=== PATIENT | female | born 1985 | race Caucasian/White ===

== ENCOUNTER 2023-06-14 06:51 | Inpatient (IN) | payer MEDICAID ==
[~2023-06-14] VITALS: Ht 154.9 cm; Wt 64.9 kg
[2023-06-14 07:15] VITALS: BP_SYST 108; PULSE 113; RESP 17; TEMP 98.1; O2SAT 96
[2023-06-14 08:11] LABS: HEMATOCRIT 37.8 % (36-48); HEMOGLOBIN 12.4 g/dL (12.0-16.0); MEAN CORPUSCULAR HEMOGLOBIN 35 pg (27-31); MEAN CORPUSCULAR HGB CONC 33 % (32-36); MEAN CORPUSCULAR VOLUME 108 fL (79.0-98.0); PLATELET COUNT (AUTO) 237 K/uL (130-430); RED BLOOD CELL COUNT(AUTO) 3.51 MIL/uL (4.2-6.2); RED CELL DISTRIBUTION WIDTH 16.5 % (9.0-15.0)
[2023-06-14 08:16] LABS: INR 1.7 (0.8-1.2); PROTHROMBIN TIME 17.6 SECS (9.5-12.5)
[2023-06-14 08:30] LABS: ALANINE AMINOTRANSFERASE 80 U/L (12-78); ALBUMIN 1.4 g/dL (3.4-4.8); ANION GAP 9 (5-15); ASPARTATE AMINOTRANSFERASE 131 U/L (10-37); CALCIUM 7.5 mg/dL (8.4-11.0); CARBON DIOXIDE 24 mmol/L (23-29); CHLORIDE 100 mmol/L (98-107); CREATININE 0.75 mg/dL (0.55-1.30); GFR AFRICAN AMERICAN 113 mL/min (>90); GLUCOSE 94 mg/dL (74-106); LIPASE 33 U/L (73-393); SODIUM SERUM 133 mmol/L (136-145); TOTAL PROTEIN, SERUM 4.6 g/dL (6.4-8.3); UREA NITROGEN, BLOOD 6 mg/dL (8-21)
[2023-06-14 08:32] LABS: ALCOHOL, BLOOD < 3 mg/dL (<10); GFR NON AFRICAN-AMERICAN 93 mL/min (>90)
[2023-06-14 08:34] LABS: TOTAL BILIRUBIN 18.3 mg/dL (0.0-1.0)
[2023-06-14 08:41] LABS: ATYPICAL LYMPHOCYTES % 1 % (0-0); BAND % (MANUAL) 12 % (0-6); EOSINOPHILS % (MANUAL) 2 % (0-7); LYMPHOCYTES % (MANUAL) 5 % (20-46); MONOCYTES % (MANUAL) 7 % (0-11)
[2023-06-14 08:42] LABS: ANISOCYTOSIS 1+; BASOPHILS % (MANUAL) 0 % (0-2); METAMYELOCYTES % 1 % (0-0); PLATELET ESTIMATE ADEQUATE (ADEQUATE); TARGET CELLS FEW
[2023-06-14 09:27] LABS: BARBITURATE, URINE NEGATIVE (NEG <=200); BENZODIAZEPINE, URINE POSITIVE (NEG <=150); CANNABINOID, URINE NEGATIVE (NEG <=50); COCAINE, URINE NEGATIVE (NEG <=150); METHAMPHETAMINES SCREEN,URINE NEGATIVE (NEG <=500); OPIATE, URINE NEGATIVE (NEG <=100); PHENCYCLIDINE SCREEN,URINE NEGATIVE (NEG <=25); UR TRICYCLIC ANTIDEPRESSANTS NEGATIVE (NEG <=300); URINE AMPHETAMINE NEGATIVE (NEG <=500); URINE METHADONE NEGATIVE (NEG <=200); URINE OXYCODONE SCREEN NEGATIVE (NEG <=100); URINE PROPOXYPHENE SCREEN NEGATIVE (NEG <=300)
[2023-06-14 09:33] LABS: BILIRUBIN,URINE 3+ (NEGATIVE); BLOOD, URINE NEGATIVE (NEGATIVE); CLARITY/URINE CLEAR (CLEAR); COLOR,URINE AMBER (YELLOW); GLUCOSE,URINE 1+ (NEGATIVE); KETONES,URINE TRACE (NEGATIVE); LEUKOCYTE ESTERASE ,URINE NEGATIVE (NEGATIVE); NITRITE, URINE NEGATIVE (NEGATIVE); PH,URINE 5.5 (5.0-8.0); PROTEIN URINE 1+ (NEGATIVE)
[2023-06-14 09:34] LABS: RBC,URINE 0-3 /HPF (0-3)
[2023-06-14 09:35] LABS: BACTERIA,URINE FEW /HPF (None Seen); HYALINE CASTS, URINE 0-3 /LPF (None Seen); WBC,URINE 0-3 /HPF (0-3)
[2023-06-14] MEDS ORDERED: metroNIDAZOLE 500 mg/NS 100 ML IV ONE (10:30)
[2023-06-14] MEDS ORDERED: MAGNESIUM OXIDE 400 MG TABLET PO ONE (11:00)
[2023-06-14] MEDS ORDERED: POTASSIUM CHLORIDE 20 MEQ TAB.PRT.SR PO ONE (11:00)
[2023-06-14 12:42] LABS: APPEARANCE,SPUN,BODY FLUID CLEAR (CLEAR); BF APPEARANCE UNSPUN CLEAR (CLEAR); BODY FLUID COLOR YELLOW (LT YELLOW); BODY FLUID OTHER CELLS 0 %; BODY FLUID SOURCE/ TYPE ASCITES; BODY FLUID TOTAL VOLUME 800 mL; EOSINOPHIL, BODY FLUID 0 %; LYMPHOCYTES, BODY FLUID 11 %; MONOCYTES,BODY FLUID 27 %; NEUTROPHIL, BODY FLUID 62 %; RBC, BODY FLUID 23 /uL; SOURCE/TYPE ,BODY FLUID ASCITES; WBC, BODY FLUID 104 /uL
[2023-06-14] MEDS: LORazepam 1 MG TABLET PO PRN ×2 (14:03→20:51)
[2023-06-14 15:33] VITALS: BP_SYST 110; PULSE 108; RESP 18; TEMP 98.6
[2023-06-14 17:31] LABS: BODY FLUID GLUCOSE 101 mg/dL
[2023-06-14 18:08] LABS: BODY FLUID TOTAL PROTEIN 0.7 g/dL
[2023-06-14 21:48] VITALS: BP_SYST 106; PULSE 98; RESP 18; TEMP 98.3
[2023-06-14 23:40] VITALS: BP_SYST 92; PULSE 106; RESP 20; TEMP 97.8; O2SAT 93
[2023-06-15] VITALS (7 sets, daily range): BP systolic 92–141; PULSE 101–107; RESP 16–20; TEMP 97.5–98.7; O2SAT 93–99
[2023-06-15] MEDS: D5W IV SCH (11:13)
[2023-06-15] MEDS: LEVOFLOXACIN IV SCH (11:13)
[2023-06-15] MEDS: LORazepam 1 MG TABLET PO PRN ×2 (11:36→18:35)
[2023-06-15] MEDS: HYDROcodone/ACETAMIN 5-325 MG TAB (NORCO/ VICODIN) PO PRN ×2 (12:40→18:36)
[2023-06-15] MEDS ORDERED: SPIRONOLACTONE 50 MG TABLET (ALDACTONE) PO ONE (12:45)
[2023-06-15] MEDS ORDERED: MULTIVITAMINS TAB 1 TABLET PO ONE (17:45)
[2023-06-15] MEDS ORDERED: FOLIC ACID 1 MG TABLET PO ONE (17:45)
[2023-06-15] MEDS ORDERED: THIAMINE HCL 100 MG TABLET PO ONE (17:45)
[2023-06-15] MEDS ORDERED: predniSONE 20 MG TABLET PO ONE (17:45)
[2023-06-16] MEDS: HYDROcodone/ACETAMIN 5-325 MG TAB (NORCO/ VICODIN) PO PRN ×4 (00:32→21:28)
[2023-06-16 00:41] VITALS: BP_SYST 107; PULSE 79; RESP 18; TEMP 96.7; O2SAT 92
[2023-06-16] MEDS: LORazepam 1 MG TABLET PO PRN ×3 (03:07→20:19)
[2023-06-16 06:02] LABS: BASOPHILS # (AUTO) 0.3 K/uL (0.0-0.2); BASOPHILS % (AUTO) 0.7 % (0.0-2.0); EOSINOPHILS # (AUTO) 0.1 K/uL (0.0-0.4); EOSINOPHILS % (AUTO) 0.3 % (0.0-4.0); HEMATOCRIT 40.2 % (36-48); HEMOGLOBIN 13.4 g/dL (12.0-16.0); LYMPHOCYTES # (AUTO) 1.6 K/uL (1.0-5.5); LYMPHOCYTES % (AUTO) 4.6 % (20.5-51.5); MEAN CORPUSCULAR HEMOGLOBIN 36 pg (27-31); MEAN CORPUSCULAR HGB CONC 33 % (32-36); MEAN CORPUSCULAR VOLUME 109 fL (79.0-98.0); MONOCYTES # (AUTO) 0.9 K/uL (0.0-1.0); MONOCYTES % (AUTO) 2.5 % (1.7-9.3); NEUTROPHILS # (AUTO) 32.6 K/uL (1.8-7.7); NEUTROPHILS % (AUTO) 91.9 % (40.0-70.0); PLATELET COUNT (AUTO) 240 K/uL (130-430); RED CELL DISTRIBUTION WIDTH 16.1 % (9.0-15.0)
[2023-06-16 06:16] LABS: WHITE BLOOD COUNT (AUTO) 35.5 K/uL (4.8-10.8)
[2023-06-16 06:36] LABS: CALCIUM 7.5 mg/dL (8.4-11.0); CREATININE 0.72 mg/dL (0.55-1.30); POTASSIUM 3.9 mmol/L (3.5-5.1)
[2023-06-16 08:00] VITALS: BP_SYST 100; PULSE 94; RESP 16; TEMP 98; O2SAT 94; O2SAT 95
[2023-06-16] MEDS: THIAMINE HCL 100 MG TABLET PO SCH (08:56)
[2023-06-16] MEDS: FOLIC ACID 1 MG TABLET PO SCH (08:56)
[2023-06-16] MEDS: MULTIVITAMINS TAB 1 TABLET PO SCH (08:56)
[2023-06-16] MEDS: SPIRONOLACTONE 50 MG TABLET (ALDACTONE) PO SCH (08:57)
[2023-06-16] MEDS: LEVOFLOXACIN IV SCH (11:11)
[2023-06-16] MEDS: D5W IV SCH (11:11)
[2023-06-16 12:00] VITALS: BP_SYST 110; PULSE 86; RESP 16; TEMP 98.1; O2SAT 96
[2023-06-16 16:00] VITALS: BP_SYST 104; PULSE 92; RESP 16; TEMP 98.2; O2SAT 95
[2023-06-16 19:30] VITALS: O2SAT 94
[2023-06-16 20:00] VITALS: BP_SYST 103; PULSE 107; RESP 16; TEMP 98.5; O2SAT 94
[2023-06-16] MEDS ORDERED: LORazepam 2 MG/ML VIAL IVP ONE (23:30)
[2023-06-17] MEDS: NICOTINE 21 MG/24 HR PATCH.TD24 TD SCH ×2 (00:01→21:04)
[2023-06-17 00:35] VITALS: BP_SYST 111; PULSE 80; RESP 17; TEMP 97.9; O2SAT 94
[2023-06-17] MEDS: HYDROcodone/ACETAMIN 5-325 MG TAB (NORCO/ VICODIN) PO PRN ×4 (03:23→23:43)
[2023-06-17 08:00] VITALS: BP_SYST 108; PULSE 112; RESP 18; TEMP 97.7; O2SAT 95
[2023-06-17] MEDS: THIAMINE HCL 100 MG TABLET PO SCH (09:51)
[2023-06-17] MEDS: FOLIC ACID 1 MG TABLET PO SCH (09:53)
[2023-06-17] MEDS: SPIRONOLACTONE 50 MG TABLET (ALDACTONE) PO SCH (09:56)
[2023-06-17] MEDS: MULTIVITAMINS TAB 1 TABLET PO SCH (09:56)
[2023-06-17] MEDS: LEVOFLOXACIN IV SCH (10:17)
[2023-06-17] MEDS: D5W IV SCH (10:17)
[2023-06-17 11:55] LABS: BASOPHILS # (AUTO) 0.1 K/uL (0.0-0.2); BASOPHILS % (AUTO) 0.2 % (0.0-2.0); EOSINOPHILS # (AUTO) 0.3 K/uL (0.0-0.4); EOSINOPHILS % (AUTO) 1.2 % (0.0-4.0); HEMATOCRIT 36.6 % (36-48); HEMOGLOBIN 12.2 g/dL (12.0-16.0); LYMPHOCYTES # (AUTO) 1.2 K/uL (1.0-5.5); MEAN CORPUSCULAR HEMOGLOBIN 36 pg (27-31); MEAN CORPUSCULAR HGB CONC 33 % (32-36); MEAN CORPUSCULAR VOLUME 107 fL (79.0-98.0); MONOCYTES # (AUTO) 1.8 K/uL (0.0-1.0); MONOCYTES % (AUTO) 6.2 % (1.7-9.3); NEUTROPHILS # (AUTO) 26.1 K/uL (1.8-7.7); PLATELET COUNT (AUTO) 201 K/uL (130-430); RED BLOOD CELL COUNT(AUTO) 3.42 MIL/uL (4.2-6.2); RED CELL DISTRIBUTION WIDTH 15.9 % (9.0-15.0); WHITE BLOOD COUNT (AUTO) 29.5 K/uL (4.8-10.8)
[2023-06-17 11:57] LABS: CALCIUM 7.4 mg/dL (8.4-11.0); CREATININE 0.87 mg/dL (0.55-1.30); NEUTROPHILS % (AUTO) 88.4 % (40.0-70.0); POTASSIUM 3.5 mmol/L (3.5-5.1)
[2023-06-17 12:00] VITALS: BP_SYST 109; PULSE 124; RESP 16; TEMP 98.5; O2SAT 94
[2023-06-17] MEDS: LORazepam 1 MG TABLET PO PRN ×2 (12:29→21:04)
[2023-06-17 16:00] VITALS: BP_SYST 116; PULSE 128; RESP 16; TEMP 98.4; O2SAT 95
[2023-06-17 20:00] VITALS: BP_SYST 114; PULSE 118; RESP 15; TEMP 99.5; O2SAT 94
[2023-06-18] VITALS (7 sets, daily range): BP systolic 100–128; PULSE 70–126; RESP 16–20; TEMP 98–99.9; O2SAT 94–100
[2023-06-18] MEDS: LORazepam 1 MG TABLET PO PRN ×3 (05:17→20:57)
[2023-06-18 08:21] LABS: HEMATOCRIT 36.1 % (36-48); HEMOGLOBIN 12.5 g/dL (12.0-16.0); MEAN CORPUSCULAR HEMOGLOBIN 37 pg (27-31); MEAN CORPUSCULAR HGB CONC 35 % (32-36); MEAN CORPUSCULAR VOLUME 107 fL (79.0-98.0); PLATELET COUNT (AUTO) 165 K/uL (130-430); RED BLOOD CELL COUNT(AUTO) 3.39 MIL/uL (4.2-6.2); RED CELL DISTRIBUTION WIDTH 15.7 % (9.0-15.0)
[2023-06-18 08:22] LABS: ALBUMIN 1.3 g/dL (3.4-4.8); CALCIUM 7.4 mg/dL (8.4-11.0); CREATININE 0.99 mg/dL (0.55-1.30); POTASSIUM 3.5 mmol/L (3.5-5.1); TOTAL PROTEIN, SERUM 4.4 g/dL (6.4-8.3)
[2023-06-18 08:23] LABS: PROTHROMBIN TIME 20.5 SECS (9.5-12.5); WHITE BLOOD COUNT (AUTO) 36.1 K/uL (4.8-10.8)
[2023-06-18 08:25] LABS: TOTAL BILIRUBIN 15.9 mg/dL (0.0-1.0)
[2023-06-18] MEDS: MULTIVITAMINS TAB 1 TABLET PO SCH ×2 (08:52→08:54)
[2023-06-18] MEDS: FOLIC ACID 1 MG TABLET PO SCH (08:53)
[2023-06-18] MEDS: HYDROcodone/ACETAMIN 5-325 MG TAB (NORCO/ VICODIN) PO PRN ×3 (08:54→23:30)
[2023-06-18] MEDS: predniSONE 20 MG TABLET PO SCH (08:54)
[2023-06-18] MEDS: FUROSEMIDE 40 MG/4 ML VIAL IVP SCH (08:55)
[2023-06-18] MEDS: SPIRONOLACTONE 50 MG TABLET (ALDACTONE) PO SCH (09:35)
[2023-06-18] MEDS: NICOTINE 21 MG/24 HR PATCH.TD24 TD SCH (09:35)
[2023-06-18] MEDS: THIAMINE HCL 100 MG TABLET PO SCH (09:38)
[2023-06-18 11:04] LABS: BAND % (MANUAL) 17 % (0-6); BASOPHILS % (MANUAL) 0 % (0-2); EOSINOPHILS % (MANUAL) 1 % (0-7); LYMPHOCYTES % (MANUAL) 6 % (20-46); MONOCYTES % (MANUAL) 5 % (0-11); PLATELET ESTIMATE ADEQUATE (ADEQUATE); TARGET CELLS RARE
[2023-06-18] MEDS: D5W IV SCH (11:35)
[2023-06-18] MEDS: LEVOFLOXACIN IV SCH (11:35)
[2023-06-19] VITALS: BP_SYST 103; PULSE 91; RESP 16; TEMP 98.4; O2SAT 94
[2023-06-19] MEDS: LORazepam 1 MG TABLET PO PRN (05:19)
[2023-06-19 06:25] LABS: BASOPHILS # (AUTO) 0.1 K/uL (0.0-0.2); BASOPHILS % (AUTO) 0.4 % (0.0-2.0); EOSINOPHILS % (AUTO) 0.1 % (0.0-4.0); HEMOGLOBIN 13.5 g/dL (12.0-16.0); LYMPHOCYTES % (AUTO) 5.2 % (20.5-51.5); MEAN CORPUSCULAR HEMOGLOBIN 35 pg (27-31); MEAN CORPUSCULAR HGB CONC 33 % (32-36); MEAN CORPUSCULAR VOLUME 107 fL (79.0-98.0); MONOCYTES # (AUTO) 1.6 K/uL (0.0-1.0); MONOCYTES % (AUTO) 4.3 % (1.7-9.3); PLATELET COUNT (AUTO) 164 K/uL (130-430); RED BLOOD CELL COUNT(AUTO) 3.82 MIL/uL (4.2-6.2); RED CELL DISTRIBUTION WIDTH 15.7 % (9.0-15.0)
[2023-06-19 06:42] LABS: INR 1.9 (0.8-1.2); PROTHROMBIN TIME 19.4 SECS (9.5-12.5)
[2023-06-19 07:05] LABS: WHITE BLOOD COUNT (AUTO) 37.8 K/uL (4.8-10.8)
[2023-06-19 07:06] LABS: ALBUMIN 1.5 g/dL (3.4-4.8); CALCIUM 7.7 mg/dL (8.4-11.0); CREATININE 0.84 mg/dL (0.55-1.30); POTASSIUM 3.1 mmol/L (3.5-5.1)
[2023-06-19 08:00] VITALS: BP_SYST 98; PULSE 93; RESP 18; TEMP 98; O2SAT 100; O2SAT 95
[2023-06-19] MEDS: THIAMINE HCL 100 MG TABLET PO SCH (08:42)
[2023-06-19] MEDS: MULTIVITAMINS TAB 1 TABLET PO SCH (08:42)
[2023-06-19] MEDS: FOLIC ACID 1 MG TABLET PO SCH (08:42)
[2023-06-19] MEDS: predniSONE 20 MG TABLET PO SCH (08:42)
[2023-06-19] MEDS: HYDROcodone/ACETAMIN 5-325 MG TAB (NORCO/ VICODIN) PO PRN ×3 (08:43→21:13)
[2023-06-19] MEDS: SPIRONOLACTONE 50 MG TABLET (ALDACTONE) PO SCH (08:47)
[2023-06-19] MEDS: NICOTINE 21 MG/24 HR PATCH.TD24 TD SCH (08:47)
[2023-06-19] MEDS: FUROSEMIDE 40 MG/4 ML VIAL IVP SCH ×2 (09:14→21:12)
[2023-06-19] MEDS: D5W IV SCH (11:38)
[2023-06-19] MEDS: LEVOFLOXACIN IV SCH (11:38)
[2023-06-19 12:00] VITALS: BP_SYST 122; PULSE 56; RESP 20; TEMP 98; O2SAT 96
[2023-06-19 16:00] VITALS: BP_SYST 101; PULSE 68; RESP 18; TEMP 97.8; O2SAT 96
[2023-06-19 20:15] VITALS: BP_SYST 108; PULSE 94; RESP 18; TEMP 98.1; O2SAT 92; O2SAT 93
[2023-06-20] MEDS: LORazepam 1 MG TABLET PO PRN ×3 (00:13→18:05)
[2023-06-20 00:35] VITALS: BP_SYST 107; PULSE 98; RESP 15; TEMP 97.3; O2SAT 93
[2023-06-20] MEDS: HYDROcodone/ACETAMIN 5-325 MG TAB (NORCO/ VICODIN) PO PRN ×4 (03:11→16:24)
[2023-06-20 05:20] LABS: BASOPHILS # (AUTO) 0.1 K/uL (0.0-0.2)
[2023-06-20 05:29] LABS: BASOPHILS % (AUTO) 0.2 % (0.0-2.0); EOSINOPHILS # (AUTO) 0.1 K/uL (0.0-0.4); EOSINOPHILS % (AUTO) 0.2 % (0.0-4.0); LYMPHOCYTES # (AUTO) 2.3 K/uL (1.0-5.5); LYMPHOCYTES % (AUTO) 6.2 % (20.5-51.5); MEAN CORPUSCULAR HEMOGLOBIN 35 pg (27-31); MEAN CORPUSCULAR HGB CONC 33 % (32-36); MEAN CORPUSCULAR VOLUME 106 fL (79.0-98.0); MONOCYTES # (AUTO) 2.1 K/uL (0.0-1.0); MONOCYTES % (AUTO) 5.7 % (1.7-9.3); NEUTROPHILS # (AUTO) 33.2 K/uL (1.8-7.7); NEUTROPHILS % (AUTO) 87.7 % (40.0-70.0); PLATELET COUNT (AUTO) 168 K/uL (130-430)
[2023-06-20 05:42] LABS: INR 1.7 (0.8-1.2); PROTHROMBIN TIME 16.9 SECS (9.5-12.5)
[2023-06-20 05:57] LABS: WHITE BLOOD COUNT (AUTO) 37.9 K/uL (4.8-10.8)
[2023-06-20 07:42] LABS: ALBUMIN 1.5 g/dL (3.4-4.8); CREATININE 0.99 mg/dL (0.55-1.30); POTASSIUM 3.5 mmol/L (3.5-5.1); TOTAL BILIRUBIN 11.2 mg/dL (0.0-1.0); TOTAL PROTEIN, SERUM 4.2 g/dL (6.4-8.3)
[2023-06-20 08:00] VITALS: BP_SYST 106; PULSE 75; RESP 17; TEMP 97.2; O2SAT 96
[2023-06-20] MEDS: FUROSEMIDE 40 MG/4 ML VIAL IVP SCH ×2 (08:20→20:50)
[2023-06-20] MEDS: predniSONE 20 MG TABLET PO SCH (08:20)
[2023-06-20] MEDS: NICOTINE 21 MG/24 HR PATCH.TD24 TD SCH (08:20)
[2023-06-20] MEDS: SPIRONOLACTONE 50 MG TABLET (ALDACTONE) PO SCH ×2 (08:21→20:49)
[2023-06-20] MEDS: MULTIVITAMINS TAB 1 TABLET PO SCH (08:21)
[2023-06-20] MEDS: FOLIC ACID 1 MG TABLET PO SCH (08:21)
[2023-06-20] MEDS: THIAMINE HCL 100 MG TABLET PO SCH (08:22)
[2023-06-20] MEDS: D5W IV SCH (11:21)
[2023-06-20] MEDS: LEVOFLOXACIN IV SCH (11:21)
[2023-06-20 12:00] VITALS: BP_SYST 101; PULSE 89; RESP 20; TEMP 98.8; O2SAT 93
[2023-06-20 16:00] VITALS: BP_SYST 106; PULSE 85; RESP 18; TEMP 98.4; O2SAT 95
[2023-06-20 20:00] VITALS: BP_SYST 110; PULSE 88; RESP 18; TEMP 97.7; O2SAT 94
[2023-06-21 00:44] VITALS: BP_SYST 105; PULSE 70; RESP 13; TEMP 97.5; O2SAT 98
[2023-06-21] MEDS: HYDROcodone/ACETAMIN 5-325 MG TAB (NORCO/ VICODIN) PO PRN ×4 (00:50→20:45)
[2023-06-21] MEDS: LORazepam 1 MG TABLET PO PRN ×3 (02:05→18:17)
[2023-06-21 06:00] LABS: BASOPHILS # (AUTO) 0.2 K/uL (0.0-0.2); BASOPHILS % (AUTO) 0.6 % (0.0-2.0); HEMATOCRIT 36.6 % (36-48); HEMOGLOBIN 12.2 g/dL (12.0-16.0); LYMPHOCYTES % (AUTO) 5.6 % (20.5-51.5); MEAN CORPUSCULAR HEMOGLOBIN 35 pg (27-31); MEAN CORPUSCULAR HGB CONC 33 % (32-36); MEAN CORPUSCULAR VOLUME 106 fL (79.0-98.0); MONOCYTES # (AUTO) 1.7 K/uL (0.0-1.0); MONOCYTES % (AUTO) 4.8 % (1.7-9.3); NEUTROPHILS # (AUTO) 31.3 K/uL (1.8-7.7); PLATELET COUNT (AUTO) 168 K/uL (130-430); RED BLOOD CELL COUNT(AUTO) 3.46 MIL/uL (4.2-6.2); RED CELL DISTRIBUTION WIDTH 15.5 % (9.0-15.0)
[2023-06-21 06:05] LABS: ALBUMIN 1.5 g/dL (3.4-4.8); CALCIUM 7.2 mg/dL (8.4-11.0); CREATININE 1.01 mg/dL (0.55-1.30); TOTAL BILIRUBIN 8.8 mg/dL (0.0-1.0); TOTAL PROTEIN, SERUM 4.7 g/dL (6.4-8.3)
[2023-06-21 06:43] LABS: WHITE BLOOD COUNT (AUTO) 35.1 K/uL (4.8-10.8)
[2023-06-21 08:00] VITALS: BP_SYST 107; PULSE 90; RESP 16; TEMP 97; O2SAT 94; O2SAT 98
[2023-06-21] MEDS: THIAMINE HCL 100 MG TABLET PO SCH (08:27)
[2023-06-21] MEDS: FOLIC ACID 1 MG TABLET PO SCH (08:27)
[2023-06-21] MEDS: NICOTINE 21 MG/24 HR PATCH.TD24 TD SCH (08:27)
[2023-06-21] MEDS: MULTIVITAMINS TAB 1 TABLET PO SCH (08:27)
[2023-06-21] MEDS: SPIRONOLACTONE 50 MG TABLET (ALDACTONE) PO SCH ×2 (08:28→20:43)
[2023-06-21] MEDS: predniSONE 20 MG TABLET PO SCH (08:29)
[2023-06-21] MEDS: FUROSEMIDE 40 MG/4 ML VIAL IVP SCH (08:29)
[2023-06-21] MEDS ORDERED: POTASSIUM CHLORIDE 20 MEQ TAB.PRT.SR PO ONE (11:15)
[2023-06-21] MEDS: D5W IV SCH (11:49)
[2023-06-21] MEDS: LEVOFLOXACIN IV SCH (11:49)
[2023-06-21 12:00] VITALS: BP_SYST 111; PULSE 90; RESP 18; TEMP 97.6; O2SAT 94
[2023-06-21 16:00] VITALS: BP_SYST 113; PULSE 88; RESP 18; TEMP 97.7; O2SAT 93
[2023-06-21 19:50] VITALS: BP_SYST 120; PULSE 72; RESP 18; TEMP 97.3; O2SAT 96
[2023-06-21] MEDS: FUROSEMIDE 40 MG TABLET PO SCH (20:44)
[2023-06-22 00:51] VITALS: BP_SYST 101; PULSE 81; RESP 18; TEMP 97.8; O2SAT 94
[2023-06-22] MEDS: LORazepam 1 MG TABLET PO PRN ×3 (02:38→20:07)
[2023-06-22] MEDS: HYDROcodone/ACETAMIN 5-325 MG TAB (NORCO/ VICODIN) PO PRN ×3 (05:10→18:18)
[2023-06-22 07:13] LABS: HEMATOCRIT 39.9 % (36-48); HEMOGLOBIN 13.4 g/dL (12.0-16.0); MEAN CORPUSCULAR HEMOGLOBIN 36 pg (27-31); MEAN CORPUSCULAR HGB CONC 34 % (32-36); MEAN CORPUSCULAR VOLUME 106 fL (79.0-98.0); PLATELET COUNT (AUTO) 170 K/uL (130-430); RED BLOOD CELL COUNT(AUTO) 3.76 MIL/uL (4.2-6.2); RED CELL DISTRIBUTION WIDTH 15.4 % (9.0-15.0)
[2023-06-22 07:14] LABS: CALCIUM 7.7 mg/dL (8.4-11.0); CREATININE 0.98 mg/dL (0.55-1.30); POTASSIUM 3.5 mmol/L (3.5-5.1)
[2023-06-22 07:40] LABS: WHITE BLOOD COUNT (AUTO) 36.5 K/uL (4.8-10.8)
[2023-06-22 08:00] VITALS: BP_SYST 118; PULSE 101; RESP 14; TEMP 98.4; O2SAT 97
[2023-06-22 08:11] LABS: ANISOCYTOSIS 1+; ATYPICAL LYMPHOCYTES % 0 % (0-0); BAND % (MANUAL) 15 % (0-6); BASOPHILS % (MANUAL) 0 % (0-2); EOSINOPHILS % (MANUAL) 0 % (0-7); LYMPHOCYTES % (MANUAL) 6 % (20-46); METAMYELOCYTES % 3 % (0-0); MONOCYTES % (MANUAL) 7 % (0-11); MYELOCYTES % 2 % (0-0); PLATELET ESTIMATE ADEQUATE (ADEQUATE); SMUDGE CELLS RARE
[2023-06-22 08:12] LABS: ROULEAU 1+
[2023-06-22] MEDS: NICOTINE 21 MG/24 HR PATCH.TD24 TD SCH (09:40)
[2023-06-22] MEDS: predniSONE 20 MG TABLET PO SCH (09:41)
[2023-06-22] MEDS: MULTIVITAMINS TAB 1 TABLET PO SCH (09:41)
[2023-06-22] MEDS: SPIRONOLACTONE 50 MG TABLET (ALDACTONE) PO SCH ×2 (09:41→20:07)
[2023-06-22] MEDS: THIAMINE HCL 100 MG TABLET PO SCH (09:41)
[2023-06-22] MEDS: FOLIC ACID 1 MG TABLET PO SCH (09:42)
[2023-06-22] MEDS: levoFLOXacin 500 MG TABLET PO SCH (09:42)
[2023-06-22] MEDS: FUROSEMIDE 40 MG TABLET PO SCH ×2 (09:42→20:07)
[2023-06-22 12:45] VITALS: BP_SYST 116; PULSE 99; RESP 17; TEMP 97.4; O2SAT 99
[2023-06-22 16:50] VITALS: BP_SYST 112; PULSE 90; RESP 17; TEMP 97.7; O2SAT 97
[2023-06-22 19:30] VITALS: BP_SYST 104; PULSE 99; RESP 20; TEMP 99.1; O2SAT 97
[2023-06-23] MEDS: HYDROcodone/ACETAMIN 5-325 MG TAB (NORCO/ VICODIN) PO PRN ×2 (00:37→06:47)
[2023-06-23 00:39] VITALS: BP_SYST 114; PULSE 78; RESP 18; TEMP 97.8; O2SAT 98
[2023-06-23] MEDS: LORazepam 1 MG TABLET PO PRN (04:25)
[2023-06-23 06:23] LABS: CREATININE 1.01 mg/dL (0.55-1.30); POTASSIUM 3.6 mmol/L (3.5-5.1)
[2023-06-23 08:00] VITALS: BP_SYST 107; PULSE 85; RESP 14; TEMP 97.9; O2SAT 97
[2023-06-23] MEDS ORDERED: LORA-259 PO (10:08)
[2023-06-23] MEDS: levoFLOXacin 500 MG TABLET PO SCH (10:23)
[2023-06-23] MEDS: NICOTINE 21 MG/24 HR PATCH.TD24 TD SCH (10:23)
[2023-06-23] MEDS: THIAMINE HCL 100 MG TABLET PO SCH (10:26)
[2023-06-23] MEDS: FUROSEMIDE 40 MG TABLET PO SCH (10:26)
[2023-06-23] MEDS: SPIRONOLACTONE 50 MG TABLET (ALDACTONE) PO SCH (10:27)
[2023-06-23] MEDS: MULTIVITAMINS TAB 1 TABLET PO SCH (10:27)
[2023-06-23] MEDS: predniSONE 20 MG TABLET PO SCH (10:27)
[2023-06-23] MEDS: FOLIC ACID 1 MG TABLET PO SCH (10:29)
[2023-06-23 10:48] VITALS: BP_SYST 105; BP_SYST 107; PULSE 85; PULSE 89; RESP 14; TEMP 97.5; TEMP 97.9; O2SAT 96; O2SAT 97
[2023-06-23] MEDS ORDERED: Thiamine Hcl PO (11:45)
[2023-06-23] MEDS ORDERED: PRED20TA PO ×2 (11:45→13:38)
[2023-06-23 12:00] VITALS: BP_SYST 105; PULSE 89; RESP 16; TEMP 97.5; O2SAT 96
[2023-06-23] MEDS ORDERED: LEVO750T64 PO (13:37)
[2023-06-23] MEDS ORDERED: SPIR100T PO (13:38)
[2023-06-23] MEDS ORDERED: THIA250T3 PO (13:39)
== END 2023-06-23 12:20 | disposition home or self-care (01) | DRG 720 ==
LOC: SED 06:51 → SMU 13:11
PROVIDERS: ADMIT Internal Medicine; ATTEND Internal Medicine
PROC: 0W9G3ZZ Drainage of Peritoneal Cavity, Percutaneous Approach (ICD-10-PCS; principal; 2023-06-14)
DX: A41.9 Sepsis, unspecified organism (principal); E43 Unspecified severe protein-calorie malnutrition; J18.9 Pneumonia, unspecified organism; D68.9 Coagulation defect, unspecified; K70.31 Alcoholic cirrhosis of liver with ascites; E87.1 Hypo-osmolality and hyponatremia; E83.51 Hypocalcemia; K72.10 Chronic hepatic failure without coma; K70.11 Alcoholic hepatitis with ascites; Z20.822 Contact with and (suspected) exposure to COVID-19; E80.6 Other disorders of bilirubin metabolism; F10.10 Alcohol abuse, uncomplicated; Y90.9 Presence of alcohol in blood, level not specified; F17.210 Nicotine dependence, cigarettes, uncomplicated; Z88.0 Allergy status to penicillin; Z79.899 Other long term (current) drug therapy; Z68.27 Body mass index [BMI] 27.0-27.9, adult
CPT/HCPCS: 36415; 49083; 71045; 76376; 80048; 80053; 80307; 81000; 82140; 82247; 82947; 83605; 83690; 83986; 84157; 85007; 85025; 85027; 85610-TC; 85730-TC; 87040; 87070-TC; 87086; 89051-TC; 89060-TC; 93005; 93970; 96365; 96375; 99285; G0482; J1940; J1956; J2060; J3490; J7050; J7512